=== PATIENT | male | born 1980 | race Caucasian/White ===

== ENCOUNTER 2016-12-08 13:45 | Emergency (ER) | payer SELFPAY ==
[~2016-12-08] VITALS: Ht 160 cm; Wt 68.9 kg
[2016-12-08 15:05] VITALS: BP 122/80
== END 2016-12-08 17:10 | disposition home or self-care (01) ==
LOC: ED 13:45
DX: M71.21 Synovial cyst of popliteal space [Baker], right knee (principal)
CPT/HCPCS: Q0092